=== PATIENT | female | born 1995 | race Caucasian/White ===

== ENCOUNTER → 2019-06-25 13:43 | Outpatient (BNVA) | payer SELFPAY | PROVIDERS: Family Provider Family Medicine; PCP Family Medicine; Visit Provider Family Medicine | DX: R05 Cough (principal) | CPT/HCPCS: 87804 ==

== ENCOUNTER → 2019-09-17 16:21 | Outpatient (BNVA) | payer OTHER, MEDICAID, SELFPAY | PROVIDERS: Family Provider Family Medicine; PCP Family Medicine; Visit Provider Nurse Practitioner Women's Health | DX: Z01.419 Encounter for gynecological examination (general) (routine) without abnormal findings (principal); N76.0 Acute vaginitis; N72 Inflammatory disease of cervix uteri | CPT/HCPCS: 88175 ==

== ENCOUNTER → 2021-08-23 08:20 | Outpatient (BNVA) | payer OTHER, BC, MEDICAID, SELFPAY | PROVIDERS: Family Provider Family Medicine; PCP Family Medicine; Visit Provider Obstetrics & Gynecology | DX: O20.9 Hemorrhage in early pregnancy, unspecified (principal) | CPT/HCPCS: 84702; 86850; 86900 ==

== ENCOUNTER 2021-12-07 17:33 | Outpatient (CLI) | payer OTHER, BC, MEDICAID, SELFPAY | END 2021-12-07 17:34 | disposition home or self-care (01) | PROVIDERS: PCP Family Medicine; Visit Provider Nurse Practitioner Women's Health | DX: N92.6 Irregular menstruation, unspecified (principal) | CPT/HCPCS: 84702 ==

== ENCOUNTER 2022-03-27 13:51 | Outpatient (CLI) | payer OTHER, BC, MEDICAID, SELFPAY | END 2022-03-27 13:52 | disposition home or self-care (01) | LOC: LAB 13:54 | PROVIDERS: Nurse Practitioner Women's Health; PCP Family Medicine; Visit Provider Family Medicine | DX: Z32.00 Encounter for pregnancy test, result unknown (principal) | CPT/HCPCS: 36415; 84702 ==

== ENCOUNTER 2022-04-12 13:58 | Outpatient (CLI) | payer OTHER, BC, MEDICAID, SELFPAY ==
[2022-04-12 14:46] LABS: Hematocrit 37.1 % (37.0-47.0); Hemoglobin 12.1 g/dL (11.5-15.3); Mean Corpuscular HGB Conc 32.6 g/dL (30.0-36.0); Mean Corpuscular Hemoglobin 29.2 pg (28.0-34.0); Mean Corpuscular Volume 89.4 fl (81-99); Platelet Count 332 10^3/cmm (130-400); Red Blood Count 4.15 10^6/uL (4.1-5.3); Red Cell Distribution Width 13.1 % (12.1-15.1); White Blood Count 13.6 10^3/uL (4.0-10.0)
== END 2022-04-12 13:59 | disposition home or self-care (01) ==
LOC: LAB 14:01
PROVIDERS: PCP Family Medicine; Visit Provider Nurse Practitioner Women's Health
DX: Z34.90 Encounter for supervision of normal pregnancy, unspecified, unspecified trimester (principal)
CPT/HCPCS: 80307; 81025; 84315; 85027; 86592; 86762; 86803; 86850; 86900; 87086; 87340; 87806

== ENCOUNTER 2022-04-19 15:18 | Outpatient (CLI) | payer OTHER, BC, MEDICAID, SELFPAY ==
--- NOTE | 2022-04-19 15:45 | USR_ITS ---
PROCEDURE INFORMATION: Exam: US , Transvaginal Exam date and time: 04/19/2022 3:42 PM Age: 26 years old Clinical indication: Lmp or gestational age (in weeks): 8w1d; Antepartum complications; Bleeding; ; Additional info: O20.9 - hemorrhage in early , unspecified, tvus LABS AND CLINICAL REPORTS: Last menstrual period start date: 02/21/2022 Gestational age (Established): 8 w 1 d Estimated due date (Established): 11/28/2022 TECHNIQUE: Imaging protocol: Real-time transvaginal obstetrical ultrasound of the maternal pelvis with image documentation. Transvaginal imaging was used for better evaluation of the fetus, adnexa, and/or cervix. COMPARISON: CT abdomen pelvis w con* [id number] 03/02/2016 10:50 AM FINDINGS: Gestation: Single live intrauterine gestation. Yolk sac measures 4.7 mm. heart rate: 147 bpm. BIOMETRY: Gestational age (AUA): 7 w 1 d Mean sac diameter: 2.3 cm. EGA (MSD) is 7 w 2 d Tenafly-Rump length (CRL): 9.2 mm. EGA (CRL) is 7 w 0 d MATERNAL: Right ovary/adnexa: Unremarkable. Left ovary/adnexa: Unremarkable. US/US OB transvaginal [id number] IMPRESSION: Single live intrauterine gestation with estimated age of 7 weeks 1 day.
== END 2022-04-19 15:19 | disposition home or self-care (01) ==
LOC: RAD 15:20
PROVIDERS: PCP Family Medicine; Visit Provider Nurse Practitioner Women's Health
DX: O20.9 Hemorrhage in early pregnancy, unspecified (principal); Z3A.01 Less than 8 weeks gestation of pregnancy
CPT/HCPCS: 76817

== ENCOUNTER → 2022-05-16 09:50 | Outpatient (BNVA) | payer OTHER, BC, MEDICAID, SELFPAY | PROVIDERS: PCP Family Medicine; Visit Provider Obstetrics & Gynecology | DX: Z34.90 Encounter for supervision of normal pregnancy, unspecified, unspecified trimester (principal) | CPT/HCPCS: 84315; 87086; 87491; 87591; 87661 ==

== ENCOUNTER → 2022-05-19 11:50 | Outpatient (BNVA) | payer OTHER, BC, MEDICAID, SELFPAY | PROVIDERS: PCP Family Medicine; Visit Provider Obstetrics & Gynecology | DX: Z34.90 Encounter for supervision of normal pregnancy, unspecified, unspecified trimester (principal) | CPT/HCPCS: 87086 ==

== ENCOUNTER → 2022-06-21 08:40 | Outpatient (BNVA) | payer OTHER, BC, MEDICAID, SELFPAY | PROVIDERS: PCP Family Medicine; Visit Provider Nurse Practitioner Women's Health | DX: Z34.90 Encounter for supervision of normal pregnancy, unspecified, unspecified trimester (principal) | CPT/HCPCS: 82105 ==

== ENCOUNTER → 2022-07-18 14:15 | Outpatient (BNVA) | payer OTHER, BC, MEDICAID, SELFPAY | PROVIDERS: PCP Family Medicine; Visit Provider Obstetrics & Gynecology | DX: O32.1XX0 Maternal care for breech presentation, not applicable or unspecified (principal); Z3A.20 20 weeks gestation of pregnancy | CPT/HCPCS: 76805 ==

== ENCOUNTER → 2022-08-22 08:16 | Outpatient (BNVA) | payer OTHER, BC, MEDICAID, SELFPAY | PROVIDERS: PCP Family Medicine; Visit Provider Nurse Practitioner Women's Health | DX: Z34.90 Encounter for supervision of normal pregnancy, unspecified, unspecified trimester (principal) | CPT/HCPCS: 82950; 84315; 85025 ==

== ENCOUNTER → 2022-08-25 08:12 | Outpatient (BNVA) | payer OTHER, BC, MEDICAID, SELFPAY | PROVIDERS: PCP Family Medicine; Visit Provider Obstetrics & Gynecology | DX: Z34.90 Encounter for supervision of normal pregnancy, unspecified, unspecified trimester (principal) | CPT/HCPCS: 82951; 82952 ==

== ENCOUNTER → 2022-09-05 14:21 | Outpatient (BNVA) | payer OTHER, BC, MEDICAID, SELFPAY | PROVIDERS: PCP Family Medicine; Visit Provider Obstetrics & Gynecology | DX: Z34.92 Encounter for supervision of normal pregnancy, unspecified, second trimester (principal); Z3A.27 27 weeks gestation of pregnancy | CPT/HCPCS: 76816 ==

== ENCOUNTER 2022-10-24 09:27 | Outpatient (CLI) | payer OTHER, BC, MEDICAID, SELFPAY ==
[2022-10-24 09:28] VITALS: BMI 36.6
[2022-10-24 09:40] VITALS: BP 123/73; PULSE 94
--- NOTE | 2022-10-24 09:53 | US_ITS ---
WS: [id number] ULTRASOUND OB LIMITED TECHNIQUE: Limited ultrasound examination of the fetus. CLINICAL INFORMATION: GESTIONAL DIABETIC COMPARISON: None. FINDINGS: Closed cervix measures 4.5 cm Single interuterine gestation. presentation is vertex Placental location is anterior. Placenta grade: 2 heart rate 144 BPM. Normal SILVIA 12.0 cm Biophysical profile 8 out of 8. breathin movement: 2 tone: 2 Amniotic fluid: 2 US/US OB BPP wo NST [id number] IMPRESSION: Normal biophysical profile 8 out of 8
[2022-10-24 10:00] VITALS: BP 128/63; PULSE 90
[2022-10-24 10:33] VITALS: BP 128/63; PULSE 90
== END 2022-10-24 10:30 | disposition home or self-care (01) ==
LOC: OPOB 09:28 → OBGYN 09:37
PROVIDERS: Absent Provider Obstetrics & Gynecology; PCP Family Medicine; Visit Provider Obstetrics & Gynecology
DX: O24.419 Gestational diabetes mellitus in pregnancy, unspecified control (principal); Z3A.00 Weeks of gestation of pregnancy not specified
CPT/HCPCS: 59025; 76819; 84315; 99211

== ENCOUNTER 2022-10-27 09:51 | Outpatient (CLI) | payer OTHER, BC, MEDICAID, SELFPAY ==
[2022-10-27 09:55] VITALS: BMI 37.5
== END 2022-10-27 10:45 | disposition home or self-care (01) ==
LOC: OPOB 09:56 → OBGYN 09:57
PROVIDERS: PCP Family Medicine; Visit Provider Obstetrics & Gynecology
DX: O24.419 Gestational diabetes mellitus in pregnancy, unspecified control (principal); Z3A.37 37 weeks gestation of pregnancy
CPT/HCPCS: 59025

== ENCOUNTER → 2022-10-31 10:11 | Outpatient (BNVA) | payer OTHER, BC, MEDICAID, SELFPAY | PROVIDERS: PCP Family Medicine; Visit Provider Obstetrics & Gynecology | DX: Z34.90 Encounter for supervision of normal pregnancy, unspecified, unspecified trimester (principal) | CPT/HCPCS: 76815; 76819 ==

== ENCOUNTER 2022-10-31 18:45 | Outpatient (CLI) | payer OTHER, BC, MEDICAID, SELFPAY ==
[2022-10-31 19:01] VITALS: BMI 36.8
[2022-10-31 19:05] VITALS: BP 131/71; PULSE 93; TEMP 36
[2022-10-31 19:24] VITALS: BP 135/63; PULSE 90
== END 2022-10-31 19:47 | disposition home or self-care (01) ==
LOC: OPOB 18:48 → OBGYN 18:48
PROVIDERS: PCP Family Medicine; Visit Provider Obstetrics & Gynecology
DX: O24.419 Gestational diabetes mellitus in pregnancy, unspecified control (principal); Z3A.35 35 weeks gestation of pregnancy
CPT/HCPCS: 59025; 84315; 99211

== ENCOUNTER 2022-11-03 15:32 | Outpatient (CLI) | payer OTHER, BC, MEDICAID, SELFPAY ==
[2022-11-03 15:32] VITALS: RESP 18
[2022-11-03 15:42] VITALS: BP 125/64; PULSE 108
[2022-11-03 15:44] VITALS: BMI 37.5
[2022-11-03 15:57] VITALS: BP 126/60; PULSE 94
[2022-11-03 16:00] VITALS: BP 124/64; PULSE 97; TEMP 36.1
[2022-11-03 16:11] VITALS: BP 124/64; PULSE 97; TEMP 36.1
== END 2022-11-03 16:12 | disposition home or self-care (01) ==
LOC: OPOB 15:33 → OBGYN 15:34
PROVIDERS: PCP Family Medicine; Visit Provider Obstetrics & Gynecology
DX: O24.419 Gestational diabetes mellitus in pregnancy, unspecified control (principal); Z3A.00 Weeks of gestation of pregnancy not specified
CPT/HCPCS: 59025

== ENCOUNTER 2022-11-07 08:53 | Outpatient (CLI) | payer OTHER, BC, MEDICAID, SELFPAY ==
[2022-11-07 09:11] VITALS: BP 128/68; PULSE 80
[2022-11-07 09:15] VITALS: BMI 36.8
[2022-11-07 09:29] VITALS: BP 128/74; PULSE 90
[2022-11-07 09:35] VITALS: BP 128/74; PULSE 90; RESP 16
== END 2022-11-07 09:35 | disposition home or self-care (01) ==
LOC: OPOB 08:57 → OBGYN 08:57
PROVIDERS: PCP Family Medicine; Visit Provider Obstetrics & Gynecology
DX: O24.419 Gestational diabetes mellitus in pregnancy, unspecified control (principal); Z3A.00 Weeks of gestation of pregnancy not specified
CPT/HCPCS: 59025; 99211

== ENCOUNTER 2022-11-10 12:55 | Outpatient (CLI) | payer OTHER, BC, MEDICAID, SELFPAY ==
--- NOTE | 2022-11-10 13:30 | US_ITS ---
WS: [id number] OB ultrasound for biophysical profile, 11/10/2022 Clinical Data: O24.419 - Gestational diabetes mellitus in , uns... Comparison: OB ultrasound, 10/31/2022 Findings: There is a single intrauterine in the vertex presentation. The heart rate is 136 beat s per minute. The placenta is anterior.. The biophysical profile is 8 of 8 with normal scores for breathing, movement, posture and tone and amniotic fluid volume. US/US OB F/U w BPP wo NST Impression: 1. Single intrauterine in vertex presentation. 2. Biophysical profile 8 of 8. 3. heart rate 136 beats per minute.
== END 2022-11-10 12:56 | disposition home or self-care (01) ==
LOC: RAD 12:58
PROVIDERS: PCP Family Medicine; Visit Provider Obstetrics & Gynecology
DX: O24.419 Gestational diabetes mellitus in pregnancy, unspecified control (principal); Z3A.00 Weeks of gestation of pregnancy not specified
CPT/HCPCS: 76816; 76819

== ENCOUNTER 2022-11-10 18:30 | Outpatient (CLI) | payer OTHER, BC, MEDICAID, SELFPAY ==
[2022-11-10 18:30] VITALS: BMI 38.0
[2022-11-10 18:40] VITALS: BP 123/62; PULSE 100
[2022-11-10 18:55] VITALS: BP 124/69; PULSE 97
[2022-11-10 19:11] VITALS: BP 133/71; PULSE 93
[2022-11-10 19:25] VITALS: BP 134/71; PULSE 94
== END 2022-11-10 19:27 | disposition home or self-care (01) ==
LOC: OPOB 18:35 → OBGYN 18:37
PROVIDERS: PCP Family Medicine; Visit Provider Obstetrics & Gynecology
DX: Z36.9 Encounter for antenatal screening, unspecified (principal)
CPT/HCPCS: 59025

== ENCOUNTER → 2022-11-14 09:17 | Outpatient (BNVA) | payer OTHER, BC, MEDICAID, SELFPAY | PROVIDERS: PCP Family Medicine; Visit Provider Obstetrics & Gynecology | DX: Z34.90 Encounter for supervision of normal pregnancy, unspecified, unspecified trimester (principal) | CPT/HCPCS: 76819 ==

== ENCOUNTER 2022-11-14 18:03 | Outpatient (CLI) | payer OTHER, BC, MEDICAID, SELFPAY ==
[2022-11-14 18:15] VITALS: BP 129/60; PULSE 89
[2022-11-14 18:31] VITALS: BP 131/75; PULSE 95
[2022-11-14 18:41] VITALS: BMI 37.3
== END 2022-11-14 18:40 | disposition home or self-care (01) ==
LOC: OPOB 18:04 → OBGYN 18:05
PROVIDERS: PCP Family Medicine; Visit Provider Obstetrics & Gynecology
DX: O24.419 Gestational diabetes mellitus in pregnancy, unspecified control (principal); Z3A.00 Weeks of gestation of pregnancy not specified
CPT/HCPCS: 59025; 84315; 87081

== ENCOUNTER 2022-11-17 14:44 | Outpatient (CLI) | payer OTHER, BC, MEDICAID, SELFPAY ==
[2022-11-17 14:44] VITALS: BMI 38.2
== END 2022-11-17 16:00 | disposition home or self-care (01) ==
LOC: OPOB 14:47 → OBGYN 14:52
PROVIDERS: PCP Family Medicine; Visit Provider Obstetrics & Gynecology
DX: O24.419 Gestational diabetes mellitus in pregnancy, unspecified control (principal); Z3A.00 Weeks of gestation of pregnancy not specified
CPT/HCPCS: 59025

== ENCOUNTER → 2022-11-21 10:15 | Outpatient (BNVA) | payer OTHER, BC, MEDICAID, SELFPAY | PROVIDERS: PCP Family Medicine; Visit Provider Obstetrics & Gynecology | DX: Z34.90 Encounter for supervision of normal pregnancy, unspecified, unspecified trimester (principal) | CPT/HCPCS: 76819 ==

== ENCOUNTER 2022-11-21 18:45 | Outpatient (CLI) | payer OTHER, BC, MEDICAID, SELFPAY ==
[2022-11-21 18:45] VITALS: BMI 37.7
[2022-11-21 19:01] VITALS: BP 139/71; PULSE 91
[2022-11-21 19:15] VITALS: BP 138/65; PULSE 98
== END 2022-11-21 19:20 | disposition home or self-care (01) ==
LOC: OPOB 18:49 → OBGYN 18:50
PROVIDERS: PCP Family Medicine; Visit Provider Obstetrics & Gynecology
DX: Z36.9 Encounter for antenatal screening, unspecified (principal)
CPT/HCPCS: 59025; 84315; 99211

== ENCOUNTER 2022-11-24 18:15 | Outpatient (CLI) | payer OTHER, BC, MEDICAID, SELFPAY ==
[2022-11-24 18:15] VITALS: BMI 38.7
[2022-11-24 18:24] VITALS: BP 137/81; PULSE 102
[2022-11-24 18:34] VITALS: BP 137/85; PULSE 91
[2022-11-24 18:44] VITALS: BP 133/71; PULSE 91
[2022-11-24 18:54] VITALS: BP 121/70; PULSE 83
[2022-11-24 19:00] VITALS: BP 121/70; PULSE 83; RESP 16; TEMP 36.7
== END 2022-11-24 19:00 | disposition home or self-care (01) ==
LOC: OPOB 18:16 → OBGYN 18:17
PROVIDERS: PCP Family Medicine; Visit Provider Obstetrics & Gynecology
DX: O24.419 Gestational diabetes mellitus in pregnancy, unspecified control (principal); Z3A.00 Weeks of gestation of pregnancy not specified
CPT/HCPCS: 59025

== ENCOUNTER → 2022-11-28 13:19 | Outpatient (BNVA) | payer OTHER, BC, MEDICAID, SELFPAY | PROVIDERS: PCP Family Medicine; Visit Provider Obstetrics & Gynecology | DX: O41.03X0 Oligohydramnios, third trimester, not applicable or unspecified (principal); Z3A.37 37 weeks gestation of pregnancy | CPT/HCPCS: 76816; 76819 ==

== ENCOUNTER 2022-11-28 18:33 | Outpatient (CLI) | payer OTHER, BC, MEDICAID, SELFPAY ==
[2022-11-28] VITALS (9 sets, daily range): BP systolic 126–143; BP diastolic 58–72; PULSE 92–101; TEMP 36.2; O2SAT 96–99; BMI 38.4
== END 2022-11-28 19:19 | disposition home or self-care (01) ==
LOC: OPOB 18:39 → OBGYN 18:41
PROVIDERS: Absent Provider Obstetrics & Gynecology; PCP Family Medicine; Visit Provider Obstetrics & Gynecology
DX: O24.419 Gestational diabetes mellitus in pregnancy, unspecified control (principal); Z3A.00 Weeks of gestation of pregnancy not specified
CPT/HCPCS: 59025; 84315

== ENCOUNTER 2022-12-01 15:21 | Outpatient (CLI) | payer OTHER, BC, MEDICAID, SELFPAY ==
[2022-12-01 15:46] VITALS: BP 125/72; PULSE 92
[2022-12-01 15:56] VITALS: BP 137/76; PULSE 88
[2022-12-01 16:11] VITALS: BMI 38.2
== END 2022-12-01 16:16 | disposition home or self-care (01) ==
LOC: OPOB 15:21 → OBGYN 15:22
PROVIDERS: PCP Family Medicine; Visit Provider Obstetrics & Gynecology
DX: O24.419 Gestational diabetes mellitus in pregnancy, unspecified control (principal); Z3A.00 Weeks of gestation of pregnancy not specified
CPT/HCPCS: 59025; 99211

== ENCOUNTER 2022-12-05 13:00 | Inpatient (IN) | payer OTHER, BC, MEDICAID, SELFPAY ==
[2022-12-05] VITALS (34 sets, daily range): BP systolic 101–159; BP diastolic 55–85; PULSE 60–98; RESP 16; TEMP 35.8–37; BMI 38.0
[2022-12-05 09:58] LABS: Basophils % 0.1 %; Eosinophils % 0.4 %; Hematocrit 37.5 % (37.0-47.0); Hemoglobin 12.5 g/dL (11.5-15.3); Lymphocytes # 1.2 10^3/uL (0.8-4.8); Lymphocytes % 11.8 %; Mean Corpuscular HGB Conc 33.3 g/dL (30.0-36.0); Mean Corpuscular Hemoglobin 30.4 pg (28.0-34.0); Mean Corpuscular Volume 91.2 fl (81-99); Mean Platelet Volume 10.9 fL (7.4-10.4); Monocytes # 0.7 10^3/uL (0.2-0.9); Monocytes % 6.7 %; Neutrophils # 8.29 10^3/uL (1.8-7.7); Neutrophils % 80.4 %; Nucleated Red Blood Cells % 0 %; Platelet Count 222 10^3/cmm (130-400); Red Blood Count 4.11 10^6/uL (4.1-5.3); Red Cell Distribution Width 13.3 % (12.1-15.1); White Blood Count 10.3 10^3/uL (4.0-10.0)
[2022-12-05] MEDS: miSOPROStol 100 mcg tablet 25 MCG VAGINAL ×2 (10:02→14:48)
[2022-12-05 11:12] LABS: Glucose Point of Care 77 mg/dL (70-110)
[2022-12-05] MEDS: dextrose 5%-lactated ringers 1,000 ML 125 ML IV ×2 (14:15→20:16)
--- NOTE | 2022-12-05 16:05 | PM.OPHPUD ---
Labor & Delivery H&P Update Date of Procedure: December 06, 2022 Date H&P Performed: 11/28/22 H&P update information: I have reviewed H&P completed within last 30 days, I have examined patient prior to procedure and No changes to prior documentation Admission Diagnosis:
[2022-12-05 17:04] LABS: Glucose Point of Care 85 mg/dL (70-110)
[2022-12-05] MEDS: acetaminophen 325 mg Tablet 650 MG PO (20:16)
[2022-12-05] MEDS: calcium carbonate 500 mg Chew Tablet 1000 MG PO (20:16)
[2022-12-05] MEDS: fentaNYL 50 mcg/mL INJ 2mL IVP ×2 (22:04→23:50)
[2022-12-05] MEDS: lactated ringers 1,000 ML 999 ML IV (22:39)
[2022-12-06] VITALS (95 sets, daily range): BP systolic 98–137; BP diastolic 50–91; PULSE 47–96; RESP 16–18; TEMP 35.4–37.1; O2SAT 97–99
[2022-12-06] MEDS: fentaNYL 50 mcg/mL INJ 2mL IVP ×4 (01:20→10:39)
[2022-12-06] MEDS: hyDROXYzine 25 mg Capsule 50 MG PO (04:15)
[2022-12-06 05:18] LABS: Glucose Point of Care 91 mg/dL (70-110)
[2022-12-06 09:29] LABS: Glucose Point of Care 125 mg/dL (70-110)
[2022-12-06] MEDS: lactated ringers 1,000 ML 125 ML IV (09:31)
[2022-12-06] MEDS: lactated ringers 1,000 ML 999 ML IV ×2 (11:45→17:37)
--- NOTE | 2022-12-06 12:02 | P.ANESUD_ITS ---
Pre-Anesthetic Update Pre-Anesthetic Assessment: Date of Surgery/Procedure: 12/06/22 Proposed Procedure: Any changes to Pre-Anesthetic Assessment?: No Labs Last 48hrs: Short CBC 12/05/22 Range/Units 09:38 WBC 10.3 H (4.0-10.0) 10^3/ uL Hgb 12.5 (11.5-15.3) g/dL Hct 37.5 (37.0-47.0) % MCV 91.2 (81-99) fl Plt Count 222 (130-400) 10^3/c mm Neut % (Auto) 80.4 % Neut # (Auto) 8.29 H (1.8-7.7) 10^3/u L Vitals: Temperature 96.8 F L 12/06/22 08:38 Temperature Source Oral 12/05/22 09:46 Pulse Rate 88 12/06/22 11:58 Pulse Rhythm Regular 12/05/22 09:00 Pulse Strength 3+ Normal 12/05/22 20:00 Respiratory Rate 18 12/06/22 10:39 Respiratory Effort Non-Labored 12/06/22 10:39 Respiratory Depth Normal 12/06/22 10:39 Respiratory Patter n Normal 12/06/22 10:39 Blood Pressure 118/65 12/06/22 11:58 Pulse Oximetry 97 12/06/22 11:56 Oxygen Delivery Me thod Room Air 12/06/22 05:33 Exam: Pre-Anes Outpt Exam: alert, oriented x 3, clear to auscultation bilaterally and regular rate & rhythm Cardiac Studies: No Data to Display Anesthesia Procedures Epidural: Time Out Performed: Yes Consents Signed: Procedure Consent Consent: requested by attending/covering physician, from patient, risks and benefits reviewed and patient agrees to proceed Lumbar Level: L3-L4 Epidural position: sitting Epidural procedure: sterile prep of area, 1% l idocaine to numb the area, 18 g needle, neg for paresthesia, test dose given, 1.5% xylocaine 1:200k epi, 0.2% Ropivacaine bolus ml (5mls), placed PCEA, no systemic response, sterile dressing applied and 0.2% Ropiavacaine @ mls/hr (10) Additional Comments: Several attempts made at L3-4 prior to success (one attempt below that level), WENDY at 6cm, cath at 11cm
[2022-12-06 13:52] LABS: Glucose Point of Care 73 mg/dL (70-110)
[2022-12-06] MEDS: dextrose 5%-lactated ringers 1,000 ML 125 ML IV (16:03)
[2022-12-06 18:21] LABS: Glucose Point of Care 81 mg/dL (70-110)
[2022-12-06 22:13] LABS: Glucose Point of Care 75 mg/dL (70-110)
[2022-12-07] VITALS (125 sets, daily range): BP systolic 94–157; BP diastolic 50–87; PULSE 54–121; RESP 16–18; TEMP 36.4–37.6; O2SAT 88–100
[2022-12-07 02:46] LABS: Glucose Point of Care 82 mg/dL (70-110)
--- NOTE | 2022-12-07 05:35 | ANES.PROC ---
Anesthesia Procedures Procedure/Date: 12/07/22 Other Information: Called for pt discomfort. Reports feeling pressure and back pain. Rate on pump at 10cc/hour and has been using boluses. Lido 1% and Fentanyl 100mcg given per epidural. Rate on epid pump increased to 13cc hour. Pt expresses relief.
[2022-12-07 06:50] LABS: Glucose Point of Care 95 mg/dL (70-110)
[2022-12-07 11:03] LABS: Glucose Point of Care 103 mg/dL (70-110)
[2022-12-07] MEDS: dextrose 5%-lactated ringers 1,000 ML 125 ML IV (11:59)
[2022-12-07] MEDS: terbutaline 1 mg/mL INJ 0.25 MG SUBCUT (12:44)
[2022-12-07] MEDS: lactated ringers 1,000 ML 999 ML IV ×2 (13:20→16:40)
--- NOTE | 2022-12-07 14:22 | US_ITS ---
WS: [id number] URINARY BLADDER ULTRASOUND HISTORY: No urine output with indwelling catheter COMPARISON: None available. Vila catheter balloon is noted in the pelvis. There is no surrounding fluid. No bladder wall is iden tified. Typically a small amount of urine is noted adjacent to the Vila catheter to suggest appropri ate position. Bilateral mild hydronephrosis. Slightly greater dilatation of the RIGHT renal pelvis. US/US renal BI* [id number] IMPRESSION: 1. Bilateral mild hydronephrosis. 2. Vila catheter is present in the pelvis. No urine is identified adjacent to this catheter.
--- NOTE | 2022-12-07 15:22 | PM.MISC ---
Miscellaneous Note Purpose of Documentation: Epidural Bolus Note: Patient uncomfortable, bolused 2mls (100mcg) fent and 10mls of 3% Nesacaine. Pt. more comfortable
[2022-12-07] MEDS: ROPivacaine premix 200 MG/100 ML PREMIX 13 MG EPIDURAL (15:50)
--- NOTE | 2022-12-07 16:28 | P.PN_ITS ---
Subjective Subjective: Mrs. Brenton Woodward at 40+2 weeks with gestational diabetes admitted for induction. Feeling some contractions. Vitals/I&O/Wt Last Vital Signs Temp 99.7 F H 12/07/22 11:34 Pulse 90 12/07/22 16:23 Resp 18 12/07/22 06:00 BP 127/69 12/07/22 16:23 Pulse Ox 100 12/07/22 13:20 O2 Del Method Room Air 12/07/22 02:00 12/07/22 12/07/22 12/07/22 06:59 14:59 22:59 Intake Total 153 / 5056.433 1285.883 / 1285.883 20 / 1305.883 Output Total 200 / 750 50 / 50 Balance -47 / 4306.433 1235.883 / 1235.883 20 / 1255.883 Physical Exam Narrative: GA: Alert and oriented ?3. Lungs: Clear to auscultation bilaterally. Heart: Regular rhythm and rate. Abdomen: Gravid, full the height equals dates, nontender. PUMP AND STILL OPERATOR: SVE; dilation: 7 cm, effacement: 90%, station: -3, presentation: VX, membranes: AROM. Extremities: no edema, no cyanosis, no calves pain. heart tracing: Basal rate: 140's bpm, Variability: moderate, Accelerations: present, Decelerations: absent, Contraction: irregular. Urinary Catheter Management: Vila: Cath Placed During This Visit: yes Reason for Continuing Indwelling Catheter: Required Immobilization for Trauma or Surgery or Anesthesia Urinary Catheter Date of Insertion: 12/06/22 Urinary Catheter Time of Insertion: 12:45 Data 12/05/22 09:38 A&P Assessment and plan (1) Gestational diabetes: Mrs. Brenton Woodward at 40+2 weeks with gestational diabetes admitted for induction. Induction was started with misoprostol for cervical ripening. Undetermined heart tracing occasionally with decelerations. After prolonged observation and heart tracing returning to category 1 dosing oxytocin was started for labor augmentation. She progressed with dilation of 7 cm when she had a spontaneous rupture of membrane. Epidural not working well and she is feeling some contractions. She has maintain the same cervical dilation over 4 hours. The patient and her were counseled regarding failure to progress and the recommendation for primary low-transverse delivery. She was counseled regarding all risk and possible complication for the delivery. They agree to the delivery and all questions were answered. She signed the consent for primary low-transverse delivery due to failure to progress. Plan Primary low transverse delivery Attestations Medical Necessity Statement*: In my professional opinion poor admitting diagnosis Coding Level of Care Code Acute Code for Chg Fwd Diagnoses Gestational diabetes O24.419
[2022-12-07] MEDS: famotidine 20 mg/2 mL INJ IVP (16:29)
[2022-12-07] MEDS: metoclopramide 5 mg/mL SDV 2 mL 10 MG IV (16:29)
[2022-12-07] MEDS: ceFAZolin 2,000 MG in sodium chloride 0.9% (plus) 50 ML 100 MG IV (16:30)
[2022-12-07] MEDS: citric acid-sodium citrate 30 mL UDC PO (16:30)
--- NOTE | 2022-12-07 18:14 | P.OP_ITS ---
Operative Report Date of procedure: December 07, 2022 Pre-op diagnosis: Term . Gestational diabetes Failure to progress. Post-op diagnosis: Same Post-op findings: Male APGARS 8/9 Procedure done: Primary low traverse delivery Surgeon: Heraclio Gee MD Estimated blood loss (mL): 500 IV fluids (mL): 1,000 Urine output (mL): 100 Complications: None Procedure: After assuring informed consent, the patient was taken to the operating room and anesthesia was initiated. She was placed in the dorsal supine position with a left lateral tilt. The abdomen was prepped and draped in the usual sterile manner. A time-out procedure was performed. Preop antibiotics was administered. A Pfannenstiel skin incision was made with the scalpel and carried through to the underlying layer of fascia with the Bovie. The fascia was nicked in the midline and the incision extended laterally with the Machuca scissors. The superior aspect of the fascial incision was then grasped with Eunice clamps and elevated and the underlying rectus muscle dissected off bluntly and sharp with machuca scissors. Attention was then turned to the inferior aspect of the incision which, in similar fashion, was grasped and tented up with Eunice clamps and the rectus muscle dissected bluntly. The rectus muscles were then in the midline and the peritoneum identified, tented up and entered sharply with Metzenbaum scissors. The peritoneal incision was then extended superiorly and inferiorly with good visualization of the bladder. The James O retractor was then inserted and the vesicouterine peritoneum identified, grasped with pickups and entered sharply with Metzenbaum scissors. This incision was then extended laterally and the bladder flap created digitally. The uterus incised in a low transverse fashion with the scalpel. The uterine incision was then extended with the bandage scissors. The was then delivered in the cephalic presentation atraumatically. The nose and the mouth were suctioned with bulb and the cord clamped and cut. The cord was normal and had three vessels. Amniotic fluid was clear. The placenta was then removed manually and the uterus exteriorized and cleared of all clots and debris. The uterine incision was repaired with 0 Vicryl in a running-locked fashion. A second layer of the same suture was used to obtain excellent hemostasis. The gutters were cleared of all clots. The uterus was then returned to the abdomen. The rectus muscles were approximated with 3-0 chromic gut. The subcutaneous adipose tissue was infiltrated with Exparel for pain management. The fascia was reapproximated with 0 Vicryl in an mid locking running fashion. The skin was cl osed with Insorb?s subcuticular absorbable ayla and Dermabond. The patient tolerated the procedure well. The sponge, lap and needle counts were correct times three.
--- NOTE | 2022-12-07 18:44 | ANE.PACU2 ---
Inpatient post-anesthesia follow up: Airway intact: Yes Vital signs: Temperature 99.7 F Pulse Rate 96 Respiratory Rate 18 Blood Pressure 153/85 Pulse Oximetry 100 Oxygen Delivery Me thod Room Air Oxygen Flow Rate Fraction of Inspir ed Oxygen Hydration adequate: Yes Nausea and vomiting: No Pain level: 3 Mental status: Baseline Additional Comments: Epidural pulled at end of case. Tip intact and insertion site covered with bandaid.
[2022-12-08 00:05] VITALS: BP 124/74; PULSE 57
[2022-12-08 02:19] VITALS: PULSE 61; O2SAT 95
[2022-12-08 02:22] VITALS: BP 132/59; PULSE 54
[2022-12-08 06:27] LABS: Hematocrit 30.3 % (37.0-47.0); Hemoglobin 9.8 g/dL (11.5-15.3); Mean Corpuscular HGB Conc 32.3 g/dL (30.0-36.0); Mean Corpuscular Hemoglobin 29.8 pg (28.0-34.0); Mean Corpuscular Volume 92.1 fl (81-99); Mean Platelet Volume 10.6 fL (7.4-10.4); Platelet Count 185 10^3/cmm (130-400); Red Blood Count 3.29 10^6/uL (4.1-5.3); Red Cell Distribution Width 13.6 % (12.1-15.1)
[2022-12-08 06:40] LABS: Glucose Point of Care 88 mg/dL (70-110)
--- NOTE | 2022-12-08 07:55 | PM.PN ---
Subjective Subjective: Mrs. Farris 27-year-old female is status post primary low transverse delivery day 1. Refers pain under control. Tolerating diet well. Vitals/I&O/Wt Last Vital Signs Temp 98.9 F 12/07/22 23:15 Pulse 73 12/09/22 04:38 Resp 15 12/09/22 00:14 BP 121/71 12/09/22 04:38 Pulse Ox 100 12/09/22 00:11 O2 Del Method Room Air 12/09/22 00:14 Physical Exam Narrative: GA; alert and oriented x 3 HEENT: normal Breasts: engorged Nipples - skin intact Lungs; clear to auscultation Heart: regular rhythm, no murmurs. Abd: Appropriately tender. BS+. Uterine fundus below umbilicus. No Fundal Tenderness. Incision minimal tenderness, incision clean and dry, no redness, pain or edema. Perineum: normal lochia. Extremities: 2+ edema, no cyanosis, no tenderness. Urinary Catheter Management: Vila: Cath Placed During This Visit: yes, but has since been removed by the nurse Reason for Continuing Indwelling Catheter: Required Immobilization for Trauma or Surgery or Anesthesia Urinary Catheter Date of Insertion: 12/06/22 Urinary Catheter Time of Insertion: 12:45 Date Urinary Catheter Removed: 12/07/22 Time Urinary Catheter Discontinued: 12:55 Latex Free: Cath Placed During This Visit: yes, but has since been removed by the nurse Reason for Continuing Indwelling Catheter: Decision to DC Catheter Date Urinary Catheter Removed: 12/08/22 Time Urinary Catheter Discontinued: 11:00 Data 12/08/22 06:18 A&P Assessment and plan (1) Status post delivery: Mrs. Farris 27-year-old female is status post primary low transverse delivery day 1. Refers pain under control. Tolerating diet well. He is afebrile hemodynamically stable postoperative day 1. Ambulating without difficulty. Plan Continue postop observation Attestations Medical Necessity Statement*: In my professional opinion poor admitting diagnosis. Coding Level of Care Code Acute Code for Chg Fwd Diagnoses Status post delivery Z98.891
[2022-12-08] MEDS: docusate sodium 100 mg Capsule PO ×2 (08:46→21:25)
[2022-12-08] MEDS: ibuprofen 800 mg tablet PO ×3 (08:46→21:24)
[2022-12-08] MEDS: prenatal vitamin Capsule 1 CAP PO (08:47)
[2022-12-08 08:51] VITALS: BP 122/58; PULSE 74
[2022-12-08 12:22] VITALS: BP 135/71; PULSE 78; O2SAT 97
[2022-12-08 16:28] VITALS: BP 113/61; PULSE 70
[2022-12-09] MEDS: acetaminophen 325 mg Tablet 650 MG PO ×2 (00:10→07:23)
[2022-12-09 00:11] VITALS: BP 130/80; PULSE 89; O2SAT 100
[2022-12-09 00:14] VITALS: RESP 15
[2022-12-09 04:38] VITALS: BP 121/71; PULSE 73
[2022-12-09] MEDS: lanolin oint 7 gm 1 APPLIC TOPICAL (07:23)
--- NOTE | 2022-12-09 08:06 | PM.OBGYDC ---
Discharge Providers GAME ENGINEER Date of Admission: 12/05/22 13:00 Date of Discharge: 12/09/22 Attending Provider at Admission: Heraclio Gee MD Attending Provider at Discharge: Heraclio Gee MD Primary Care Provider: Bret Almeida MD Diagnoses at Discharge Discharge Diagnosis (1) Status post delivery: Status: Acute Reason for Visit Reason for Visit: Gestational Diabetes Hospital Course Hospital Course Mrs. Farris 27-year-old female complicated by gestational diabetes well controlled. Admitted admitted for induction, misoprostol was given for cervical ripening, and oxytocin for labor augmentation, but she dilated to 7 cm without further progression and a primary low-transverse delivery was performed due to failure to progress. Postop observation was uneventful. She is afebrile and hemodynamically stable. Tolerating diet well. Ambulating with without difficulty. Pain under control. She was counseled regarding pelvic rest for 6 weeks (no sex, no tampons, no vaginal douches). Return to the emergency room if any fever, increased bleeding or pain. Information Peripartum Data: Infant Delivery Method: Physical Exam Narrative: GA; alert and oriented x 3 HEENT: normal Breasts: engorged Nipples - skin intact Lungs; clear to auscultation Heart: regular rhythm, no murmurs. Abd: Appropriately tender. BS+. Uterine fundus below umbilicus. No Fundal Tenderness. Incision minimal tenderness, incision clean and dry, no redness, pain or edema. Perineum: normal lochia. Extremities: 2+ edema, no cyanosis, no tenderness. Urinary Catheter Management: Vila: Cath Placed During This Visit: yes, but has since been removed by the nurse Reason for Continuing Indwelling Catheter: Required Immobilization for Trauma or Surgery or Anesthesia Urinary Catheter Date of Insertion: 12/06/22 Urinary Catheter Time of Insertion: 12:45 Date Urinary Catheter Removed: 12/07/22 Time Urinary Catheter Discontinued: 12:55 Latex Free: Cath Placed During This Visit: yes, but has since been removed by the nurse Reason for Continuing Indwelling Catheter: Decision to DC Catheter Date Urinary Catheter Removed: 12/08/22 Time Urinary Catheter Discontinued: 11:00 History History History 1 Term 0 0 Miscarriages/Ectopic 0 Living Children 0 Discharge Data Studies Completed and Pending Completed Studies During Hospitalization Category Date Time Status US renal BI* [id number] Stat Ultrasound 12/07/22 14:22 Completed Radiology Impressions Renal Ultrasound 12/07/22 14:22 IMPRESSION: 1. Bilateral mild hydronephrosis. 2. Vila catheter is present in the pelvis. No urine is identified adjacent to this catheter. Laboratory Results WBC 17.0 10^3/uL (4.0-10.0) H 12/08/22 06:18 RBC 3.29 10^6/uL (4.1-5.3) L 12/08/22 06:18 Hgb 9.8 g/dL (11.5-15.3) L 12/08/22 06:18 Hct 30.3 % (37.0-47.0) L 12/08/22 06:18 MCV 92.1 fl (81-99) 12/08/22 06:18 MCH 29.8 pg (28.0-34.0) 12/08/22 06:18 MCHC 32.3 g/dL (30.0-36.0) 12/08/22 06:18 RDW 13.6 % (12.1-15.1) 12/08/22 06:18 Plt Count 185 10^3/cmm (130-400) 12/08/22 06:18 MPV 10.6 fL (7.4-10.4) H 12/08/22 06:18 Neut % (Auto) 80.4 % 12/05/22 09:38 Lymph % (Auto) 11.8 % 12/05/22 09:38 Weld % (Auto) 6.7 % 12/05/22 09:38 Eos % (Auto) 0.4 % 12/05/22 09:38 Baso % (Auto) 0.1 % 12/05/22 09:38 Neut # (Auto) 8.29 10^3/uL (1.8-7.7) H 12/05/22 09:38 Lymph # (Auto) 1.2 10^3/uL (0.8-4.8) 12/05/22 09:38 Weld # (Auto) 0.7 10^3/uL (0.2-0.9) 12/05/22 09:38 Eos # (Auto) 0.0 10^3/uL (0.0-0.8) 12/05/22 09:38 Baso # (Auto) 0.0 10^3/uL (0.0-0.1) 12/05/22 09:38 Nucleated RBC % (auto) 0 % 12/05/22 09:38 Nucleated RBCs # 0.0 /100WBC 12/05/22 09:38 POC Glucose 88 mg/dL (70-110) 12/08/22 06:37 Vitals Last Vital Signs Temp 98.9 F 12/07/22 23:15 Pulse 73 12/09/22 04:38 Resp 15 12/09/22 00:14 BP 121/71 12/09/22 04:38 Pulse Ox 100 12/09/22 00:11 O2 Del Method Room Air 12/09/22 00:14 Discharge Plan Discharge Patient Disposition: Home Condition: Stable Prescriptions: New hydrocodone-acetaminophen 5-325 mg tablet 1 tab PO Q4H PRN (Reason: pain) Qty: 20 0RF ferrous sulfate [Iron (ferrous sulfate)] 325 mg (65 mg iron) tablet 325 mg PO BID Qty: 60 0RF acetaminophen 325 mg capsule 325 mg PO Q4H PRN (Reason: fever or postoperative pain) Qty: 60 0RF docusate sodium [Colace] 100 mg capsule 100 mg PO BID Qty: 60 0RF ibuprofen 800 mg tablet 800 mg PO TID PRN (Reason: pain) Qty: 60 0RF Continued prenat.vits,rona,byn-hrvz-qavha Tablet 1 tab PO DAILY buspirone 5 mg tablet See Rx Instructions .ROUTE .COMPLEX Qty: 60 3RF Dose Instruction: TAKE 1 TABLET BY MOUTH TWICE DAILY Rx Instructions: TAKE 1 TABLET BY MOUTH TWICE DAILY metformin 500 mg tablet See Rx Instructions .ROUTE .COMPLEX Qty: 60 0RF Dose Instruction: TAKE 1 TABLET BY MOUTH TWICE DAILY Rx Instructions: TAKE 1 TABLET BY MOUTH TWICE DAILY Discharge Orders: Discharge Order (Routine); Ordered 12/09/22 Ordered By: Heraclio Gee Referrals: Heraclio Gee MD [Physician] - 2 weeks Discharge Diet: Usual diet Discharge Activity: Limit activity as instructed Patient Instructions: Opioid Safety, Caring for Your Baby (GEN), (GEN), Choosing Between Vaginal After () or Repeat... (GEN), Your 's Appearance (GEN), TTN (Transient Tachypnea of ) (IP) Activity Restrictions/Additional Instructions: 1. Please call [facility] on next working day to make your post-operative appointment in 2 weeks. 2. Please stay home until you come back to the clinic on first post-hospatilization check up. 3. Please follow instructions on your medications CAREFULLY. 4. If you have abdominal incision, do not cover it unless dressing is necessary because of drainage. OK to shower, but avoid bath. Leave steri-strips until they fall off. If they are still on one week after surgery, you may remove them. 5. If you had vaginal surgery or vaginal repair, Dr. Gee may instruct you to take SITZ bath. 6. Yellow, blood tinged odorous vaginal discharge is usually normal after hysterectomy or vaginal surgeries. 7. No SEXUAL INTERCOURSE, tampons, or douches until you are completely released from the post-operative care. 8. Avoid constipation by eating right and maybe using some Metamucil or Milk of Magnesia. 9. All prescription refills are given during the working hours. Please do no wait till it runs out. Call the clinic at [phone] before your medication runs out. The clinic will get in touch with your doctor to prescribe medications if necessary. 10. Please remain within 40 mile radius from our hospital because emergencies do happen now and then during the post-operative period. 11. If you have stairs at home, take one step at a time slowly and minimize the number of trips. It helps to stay in one floor for the next few days. No lifting except what you can lift by one hand until you are released from the post-operative care. 12. Driving is discouraged until you are well healed. It may be 3-4 weeks before you feel strong enough to drive. You should be able to turn and look through the rear window without pain and you should be able to push the brake pedal very hard without pain before you drive. No fast rules, but SAFETY should be your primary concern. DO NOT drive if you are on sedating medications such as narcotics. 13. Call the clinic (during working hours) to make urgent appointment or go to the Emergency room, if any of the following occurs: i. Vaginal bleeding becomes heavy, more than a period. ii. Incision becomes red and sore, or drains pus. iii. Your TEMPERATURE is over 100.4F or you have chill. iv. IV site becomes red and swollen (a little ``knot?? is usually OK) v. Persistent nausea and vomiting vi. Persistent constipation or diarrhea vii. Rash or allergic reaction to medications. Discharge Attestations GAME ENGINEER Time Spent in Discharge Care*: greater than 30 min Coding Level of Care Code Acute Code for Chg Fwd Diagnoses Status post delivery Z98.891
[2022-12-09] MEDS: ibuprofen 800 mg tablet PO (08:16)
[2022-12-09] MEDS: docusate sodium 100 mg Capsule PO (08:17)
[2022-12-09] MEDS: prenatal vitamin Capsule 1 CAP PO (08:17)
[2022-12-09 10:00] VITALS: BP 125/67; PULSE 85; O2SAT 98
[2022-12-09] MEDS: HYDROcodone-acetaminophen 5-325 mg Tablet PO (12:51)
[2022-12-09 13:41] VITALS: BP 132/65; PULSE 72
== END 2022-12-09 14:30 | disposition home or self-care (01) | DRG 788 ==
LOC: OPOB 12-06 05:03 → OBGYN 12-06 05:03
PROVIDERS: Admitting Provider Obstetrics & Gynecology; PCP Family Medicine; Visit Provider Obstetrics & Gynecology
PROC: 10D00Z1 Extraction of Products of Conception, Low, Open Approach (ICD-10-PCS; CPT 59514; principal; 2022-12-07 17:00)
DX: O24.429 Gestational diabetes mellitus in childbirth, unspecified control (principal); O62.8 Other abnormalities of forces of labor; O48.0 Post-term pregnancy; Z3A.40 40 weeks gestation of pregnancy; O76 Abnormality in fetal heart rate and rhythm complicating labor and delivery; Z37.0 Single live birth
CPT/HCPCS: 36415; 36416; 51702; 59025; 59409; 76770; 82962; 85025; 85027; 96372; 96374; 96376; 99211; J0330; J0690; J1100; J1885; J2274; J2400; J2405; J2590; J2704; J2765; J2795; J3010; J3105; J3490; J7030; J7040; J7120; J7121

== ENCOUNTER → 2023-01-22 08:32 | Outpatient (BNVA) | payer OTHER, BC, MEDICAID, SELFPAY | PROVIDERS: PCP Family Medicine; Visit Provider Obstetrics & Gynecology | DX: Z39.2 Encounter for routine postpartum follow-up (principal) | CPT/HCPCS: 82950; 82951; 85025 ==

== ENCOUNTER 2023-04-16 07:23 | Outpatient (CLI) | payer OTHER, BC, MEDICAID, SELFPAY ==
[2023-04-16 09:15] LABS: Free T4 Free Thyroxine 1.15 ng/dL (0.82-1.77); Thyroid Stimulating Hormone 2.18 uIU/mL (0.27-4.20)
[2023-04-16 10:43] LABS: Estmated Average Glucose 97
[2023-04-17 11:34] LABS: T3 Total 127 ng/dL (76-181)
== END 2023-04-16 07:24 | disposition home or self-care (01) ==
LOC: LAB 07:24
PROVIDERS: PCP Family Medicine; Visit Provider Internal Medicine
DX: O24.93 Unspecified diabetes mellitus in the puerperium (principal); E07.9 Disorder of thyroid, unspecified; Z79.899 Other long term (current) drug therapy
CPT/HCPCS: 36415; 83036; 84439; 84443; 84480

== ENCOUNTER → 2023-09-21 11:01 | Outpatient (BNVA) | payer OTHER, BC, MEDICAID, SELFPAY | PROVIDERS: PCP Family Medicine; Visit Provider Nurse Practitioner Women's Health | DX: R39.9 Unspecified symptoms and signs involving the genitourinary system (principal) | CPT/HCPCS: 84315; 87086 ==

== ENCOUNTER → 2023-11-09 11:51 | Outpatient (BNVA) | payer OTHER, BC, MEDICAID, SELFPAY | PROVIDERS: PCP Family Medicine; Visit Provider Internal Medicine | DX: O24.93 Unspecified diabetes mellitus in the puerperium (principal); Z83.49 Family history of other endocrine, nutritional and metabolic diseases; Z39.1 Encounter for care and examination of lactating mother; R63.5 Abnormal weight gain | CPT/HCPCS: 36415; 83036; 84439; 84443 ==

== ENCOUNTER → 2024-01-23 11:35 | Outpatient (BNVA) | payer BC, MEDICAID, SELFPAY | PROVIDERS: PCP Family Medicine; Visit Provider Nurse Practitioner Women's Health | DX: Z12.4 Encounter for screening for malignant neoplasm of cervix (principal) | CPT/HCPCS: 88175 ==

== ENCOUNTER → 2024-01-28 10:23 | Outpatient (BNVA) | payer BC, MEDICAID, SELFPAY | PROVIDERS: PCP Family Medicine; Visit Provider Nurse Practitioner Women's Health | DX: D25.2 Subserosal leiomyoma of uterus (principal); N88.8 Other specified noninflammatory disorders of cervix uteri | CPT/HCPCS: 76830 ==

== ENCOUNTER → 2024-05-15 10:55 | Outpatient (BNVA) | payer BC, MEDICAID, SELFPAY | PROVIDERS: PCP Family Medicine; Visit Provider Nurse Practitioner Women's Health | DX: N91.2 Amenorrhea, unspecified (principal) | CPT/HCPCS: 84702 ==

== ENCOUNTER → 2024-05-21 10:41 | Outpatient (BNVA) | payer BC, MEDICAID, SELFPAY | PROVIDERS: PCP Family Medicine; Visit Provider Nurse Practitioner Women's Health | DX: Z32.01 Encounter for pregnancy test, result positive (principal) | CPT/HCPCS: 84702 ==

== ENCOUNTER 2024-05-23 10:10 | Outpatient (CLI) | payer MEDICAID, SELFPAY ==
[2024-05-23 11:05] LABS: HCG Quantitative 33.69 mIU/mL
== END 2024-05-23 10:11 | disposition home or self-care (01) ==
PROVIDERS: Nurse Practitioner Women's Health; PCP Family Medicine; Visit Provider Family Medicine
DX: O36.80X0 Pregnancy with inconclusive fetal viability, not applicable or unspecified (principal)
CPT/HCPCS: 36415; 84702

== ENCOUNTER 2024-08-05 09:41 | Outpatient (CLI) | payer OTHER, SELFPAY ==
[2024-08-05 10:58] LABS: Free T4 Free Thyroxine 1.19 ng/dL (0.82-1.77); Testosterone Total 23.5 ng/dL (8.4-48.1); Thyroid Stimulating Hormone 1.97 uIU/mL (0.27-4.20)
[2024-08-05 11:52] LABS: Prolactin 11.31 ng/mL (4.8-23.3)
[2024-08-06 07:05] LABS: T3 Total 125 ng/dL (76-181)
== END 2024-08-05 09:42 | disposition home or self-care (01) ==
LOC: LAB 09:43
PROVIDERS: PCP Family Medicine; Visit Provider Internal Medicine
DX: O24.93 Unspecified diabetes mellitus in the puerperium (principal); Z39.1 Encounter for care and examination of lactating mother; Z83.49 Family history of other endocrine, nutritional and metabolic diseases; R63.5 Abnormal weight gain
CPT/HCPCS: 36415; 84146; 84403; 84439; 84443; 84480

== ENCOUNTER → 2024-08-06 10:12 | Outpatient (BNVA) | payer OTHER, SELFPAY | PROVIDERS: PCP Family Medicine; Visit Provider Nurse Practitioner Women's Health | DX: D25.2 Subserosal leiomyoma of uterus (principal) | CPT/HCPCS: 76830 ==

== ENCOUNTER 2024-12-03 15:47 | Outpatient (CLI) | payer OTHER, SELFPAY | END 2024-12-03 15:48 | disposition home or self-care (01) | PROVIDERS: PCP Family Medicine; Visit Provider Nurse Practitioner Women's Health | DX: N92.6 Irregular menstruation, unspecified (principal) | CPT/HCPCS: 36415; 84702 ==

== ENCOUNTER 2024-12-05 06:53 | Outpatient (CLI) | payer OTHER, SELFPAY | END 2024-12-05 06:54 | disposition home or self-care (01) | PROVIDERS: PCP Family Medicine; Visit Provider Nurse Practitioner Women's Health | DX: Z01.89 Encounter for other specified special examinations (principal) | CPT/HCPCS: 36415; 84702 ==

== ENCOUNTER → 2024-12-17 12:28 | Outpatient (BNVA) | payer OTHER, BC, MEDICAID, SELFPAY | PROVIDERS: PCP Family Medicine; Visit Provider Nurse Practitioner Women's Health | DX: Z36.87 Encounter for antenatal screening for uncertain dates (principal) | CPT/HCPCS: 76817 ==

== ENCOUNTER 2025-01-04 14:48 | Emergency (ER) | payer OTHER, BC, MEDICAID, SELFPAY ==
--- OUTSIDE RECORDS SUMMARY | 2025-01-04 14:51 | XMS_ITS | Patient Health Record ---
Author Organization [facility] Address [address] [place] [address] Care Team Providers Care Social Work Manager Name Role Phone Scot Coyle Unavailable [phone] Reason For Referral No Information Medications Medication SIG (Take, Route, Frequency, Duration) Notes Start Date End Date Status Singulair 10 MG Tablet Take 1 tablet(s) by mouth each evening for allergies Oral; Duration: 30 Singulair (Montelukast Sodium) 10mg Tablet Take 1 tablet(s) by mouth each evening for allergies #30 (Thirty) tablet(s) 11/10/2013 Active Immunizations Vaccine Route Administration Date Status Comme nts Flu vaccine no Preserv 3 and > IM Intramuscular 02/23/2012 Administered Flu vaccine no Preserv 3 and > IM Intramuscular 02/21/2010 Administered Social History Social History Additional Details Category Social Info Options Details zzMigrated Social History Migrated Social History Advance Directive: Current and Verified Supported by Advance Directive Signed on 01/25/11, Allow IV and tube nutrition, allow surgery, allow antibiotics, allow mechanical ventilator, allow radiation therapy, allow dialysis, allow chemotherapy, allow CPR Other Allow Organ Donation: Patient refuses Organ Donation Accepted Portal User: User Name: [email or web address] Initial Password [email or web address] Problems Problem Type SNOMED Code ICD Code Onset Dates Problem Status W/U Status Risk Notes Problem Information temporarily unavailable Low back pain (724.2) 10/31/19 17 Active confirmed [id number]- Problem Information temporarily unavailable Premenstrual syndrome (625.4) 11/23/19 17 Active confirmed [id number]- Problem Information temporarily unavailable 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) 01/05/20 07 Problem resolved confirmed [id number]- Problem Information temporarily unavailable Scabies (133.0) 10/10/19 17 Problem resolved confirmed [id number]- Problem Information temporarily unavailable Generalized anxiety disorder (300.02) 10/31/19 17 Problem resolved confirmed [id number]- Problem Information temporarily unavailable Hematuria (599.7) 05/14/19 10 Problem resolved confirmed [id number]- Problem Information temporarily unavailable Impetigo (684) 08/01/19 06 Problem resolved confirmed [id number]- Problem Information temporarily unavailable Erythema multiforme (695.1) 06/11/19 07 Problem resolved confirmed [id number]- Problem Information temporarily unavailable Other erythema multiforme (695.19) 07/28/19 17 Problem resolved confirmed [id number]- Problem Information temporarily unavailable Cough (786.2) 03/04/20 08 Problem resolved confirmed [id number]- Problem Information temporarily unavailable Dysuria (788.1) 02/20/20 08 Problem resolved confirmed [id number]- Problem Information temporarily unavailable Chronic cough (786.2) 12/07/19 17 Problem resolved confirmed [id number]- Problem Information temporarily unavailable Rash (782.1) 12/16/19 06 Problem resolved confirmed [id number]- Problem Information temporarily unavailable Fatigue (780.79) 06/14/19 10 Problem resolved confirmed [id number]- Problem Information temporarily unavailable Well child exam (V20.2) 07/18/19 14 Problem resolved confirmed [id number]- Problem Information temporarily unavailable Pustular acne (706.1) 12/26/19 13 Problem resolved confirmed [id number]- Problem Information temporarily unavailable Other abnormal findings on blood examination (790.99) 09/28/19 13 Problem resolved confirmed [id number]- Problem Information temporarily unavailable Sore Throat (462) 07/04/19 08 Problem resolved confirmed [id number]- Problem Information temporarily unavailable Acne (706.1) 09/28/19 13 Problem resolved confirmed [id number]- Problem Information temporarily unavailable Arm Pain (729.5) 05/05/20 05 Problem resolved confirmed [id number]- Problem Information temporarily unavailable Generalized abdominal pain (789.07) 04/26/20 09 Problem resolved confirmed [id number]- Problem Information temporarily unavailable Influenza, with other respiratory manifestation (487.1) 06/10/19 08 Problem resolved confirmed [id number] 11- Problem Information temporarily unavailable Laceration of finger (883.0) 06/14/19 10 Problem resolved confirmed [id number] 11- Problem Information temporarily unavailable Foot pain (729.5) 02/23/20 12 Problem resolved confirmed [id number] 11- Problem Information temporarily unavailable Leg swelling (729.81) 06/08/19 18 Problem resolved confirmed [id number]- Problem Information temporarily unavailable Rib pain (786.50) 02/22/20 10 Problem resolved confirmed [id number] 11- Problem Information temporarily unavailable Routine pediatric physical exam (V20.2) 07/14/19 06 Problem resolved confirmed [id number] 11- Problem Information temporarily unavailable Sports physical (V70.3) 01/10/20 13 Problem resolved confirmed [id number] 11- Problem Information temporarily unavailable Streptococcal pneumonia, NEC (482.39) 05/14/19 10 Problem resolved confirmed [id number] 11- Problem Information temporarily unavailable Vaccination against other viral diseases, Influenza (V04.81) 02/23/20 12 Problem resolved confirmed [id number] 11- Problem Information temporarily unavailable Acute upper respiratory infection (465.8) 05/02/20 06 Problem resolved confirmed [id number] 11- Problem Information temporarily unavailable Allergic rhinitis, pollen-induced (477.0) 10/12/19 13 Problem resolved confirmed [id number] 11- Problem Information temporarily unavailable Hypertrophy of tonsils and adenoids (474.10) 10/17/19 08 Problem resolved confirmed [id number] 11- Problem Information temporarily unavailable Finger onychomycosis (110.1) 02/20/20 08 Problem resolved confirmed [id number] 11- Problem Information temporarily unavailable Unspecified skin lesion (239.2) 05/14/19 10 Problem resolved confirmed [id number] 11- Problem Information temporarily unavailable Disorders of menstruation and other abnormal uterine bleeding, other (626.8) 11/23/19 17 Problem resolved confirmed [id number] 11- Plan Of Treatment No Information Insurance Providers Payer Name Payer Address Payer Phone Subscriber Number Group Number Insured Name Patient Relationship to Insured Coverage Start Date Coverage End Date [facility] Plan Medicaid Replacement [address] [place] [phone] [id number] Lupe Sainz Self - patient is the insured 7 Medical (General) History Surgical History Surgery Date(Month/Year) NONE
--- NOTE | 2025-01-04 15:04 | USR_ITS ---
PROCEDURE INFORMATION: Exam: US First Trimester, Transabdominal and US , Transvaginal Exam date and time: 01/04/2025 4:24 PM Age: 29 years old Clinical indication: Lmp or gestational age (in weeks): 8w2d per PT. 8w4d per US today; Antepartum complications; Bleeding; ; Prior surgery; Surgery date: 6+ months; Surgery type: Unsure of dates. HX of c section; Additional info: Heavy vaginal discharge, LABS AND CLINICAL REPORTS: Last menstrual period start date: Unknown Gestational age (Established): 8 w 2 d Estimated due date (Established): 08/14/2025 TECHNIQUE: Imaging protocol: Real-time transabdominal obstetrical ultrasound of the maternal pelvis and a first trimester , less than 14 weeks 0 days, with image documentation. Transvaginal imaging was used for better evaluation of the fetus, adnexa, and/or cervix. COMPARISON: US OB transvaginal [id number] 12/17/2024 12:35 PM FINDINGS: GESTATION: Gestation: Yolk sac measures 3 mm. Embryo is seen with crown-rump length of 2.0 cm corresponding to sonographic age of 8 weeks and 4 days. Embryo/ cardiac activity (BPM): 171 bpm Extra-embryonic membranes/Placenta: There is suggestion of a small subchorionic hemorrhage measuring 1.8 x 0.8 x 1.5 cm. Amniotic/Chorionic fluid: Amniotic and extra-amniotic fluid are normal for gestational age. BIOMETRY: Gestational age (AUA): 8 weeks and 4 days. MATERNAL: Uterus: Unremarkable. Cervix: Trace fluid in the cervix. Cervical length 4 cm. Right ovary/adnexa: Obscured by lack of adequate acoustic window. Left ovary/adnexa: Obscured by lack of adequate acoustic window. Intraperitoneal space: Trace free fluid in the cul-de-sac and adnexal regions. US/US OB <=14 wk fetus w transvag IMPRESSION: Single living intrauterine embryo with sonographic age of 8 weeks and 4 days. Small subchorionic hemorrhage.
[2025-01-04 15:30] VITALS: BMI 33.5
[2025-01-04 16:31] LABS: Glucose Urine UA Negative (Normal); Nitrate Urine Negative (Negative); Specific Gravity, Urine 1.024 (1.005-1.030)
[2025-01-04 16:33] LABS: Hematocrit 36.7 % (36-47); Hemoglobin 12.10 g/dL (11.27-16.99); Mean Corpuscular HGB Conc 33.0 g/dL (30-55); Mean Corpuscular Hemoglobin 29.0 pg (27-33); Mean Corpuscular Volume 88.0 fl (85-98); Nucleated Red Blood Cells % 0 %; Platelet Count 274 10^3/cmm (157-399); Red Blood Count 4.17 10^6/uL (3.85-5.65); White Blood Count 7.90 10^3/uL (3.29-11.43)
[2025-01-04 16:36] LABS: Add Urine Microscopic? YES
--- NOTE | 2025-01-04 16:36 | ED_ITS ---
HPI - 2 General: Chief complaint: Vaginal Bleeding Stated complaint: heavy discharge(8wks preg) Time Seen by Provider: 01/04/25 15:02 History of Present Illness: 29-year-old female presents emergency ro om with intermittent spotting overnight some of the blood appears to be older and brown she has very slight cramping. She has not at this time denies dysuria urgency or frequency. She is approximately 8 weeks gestation based on her LMP. She usually sees Dr. Adhikari. Patient is G3, P2 SAB 1 live 1 Associated symptoms: Deny abdominal pain or dysuria Related Data Home Medications ?Medication ?Instructions ?Recorded ?Confirmed buspirone 15 mg tablet mg PO 02/12/24 02/12/24 glucosamine-chondroitin 1,500 mg See Rx Instructions P O .COMPLEX 02/12/24 02/12/24 -1,200 mg/30 mL oral liquid Knee pain Previous Rx's ?Medication ?Instructions ?Recorded metformin 500 mg tablet,extended 1,000 mg (2 x 500 mg) PO BID #90 02/12/24 release 24 hr tabs blood sugar diagnostic #50 ea 08/15/24 blood-glucose meter #1 ea 08/15/24 lancets #200 ea 08/15/24 Allergies Allergy/AdvReac Type Severity Reaction Status Date / Time No Known Allergies Allergy Verified 01/04/25 15:30 Review of Systems 2 Const: Denies: fever(s) or chills Card: Denies: chest pain Resp: Denies: dyspnea GI: Denies: abdominal pain : Denies: dysuria, urinary frequency or urinary urgency PFSH ED 2 PFSH: Medical History Anxiety She has been managed with paxil; she saw her PCP and she abruptly stopped it 03/2022 and has been managed w/o medication so far. Onychocryptosis No pertinent past medical history neghx: htn,dm,thyroid,dvt/pe PCP: Dr. Almeida Surgical History Status post delivery (~12/07/22) LTCS performed by Dr. Gee for FTP and GDM H/O eye surgery History of appendectomy (~03/02/16) Family History Grandmother Diabetes Paternal grandmother Hypertension Paternal grandmother Heart disease Paternal grandmother Hyperlipidemia Maternal grandmother Paternal grandmother Family history of thyroid problem Paternal grandmother Breast cancer Paternal--dx age unknown Stroke Paternal Family/Other Diabetes Paternal uncle Father Hypertension Grandfather Hypertension Paternal grandfather Heart disease Paternal grandfather Stroke Paternal grandfather Hyperlipidemia Maternal grandfather Paternal grandfather Denies family history of Colon cancer Ovarian cancer Uterine cancer Social History Smoking and tobacco/nicotine status: never used tobacco/nicotine Physical Exam 2 Const: COMMON NORMALS: no acute distress GENERAL APPEARANCE: cooperative and comfortable ORIENTATION/CONSCIOUSNESS: Yes awake, Yes oriented to person, Yes oriented to place and Yes oriented to time HENMT: COMMON NORMALS: normocephalic, atraumatic and hearing grossly normal bilaterally HEAD & SCALP: normocephalic and atraumatic Resp: COMMON NORMALS: normal respiratory effort, No retractions, No use of accessory muscles and clear to auscultation bilaterally AUSCULTATION: clear to auscultation bilaterally Cardio: COMMON NORMALS: regular rate, regular rhythm and No murmurs present (Cardio) RATE: regular rate RHYTHM: regular rhythm GI: COMMON NORMALS: Soft to palpation and No hepatosplenomegaly present A USCULTATION: Yes normoactive bowel sounds PALPATION: Yes Soft to palpation, No Tenderness to palpation present (GI), No Guarding due to palpation present (GI) and Yes No hepatosplenomegaly present Extremity: COMMON NORMALS: normal to inspection, capillary refill normal, no clubbing, cyanosis or edema, no calf tenderness and no pedal edema Neuro: SENSORIUM/ORIENTATION: Yes oriented to person, Yes oriented to place and Yes oriented to time Skin: COMMON NORMALS: no rashes or lesions noted GENERAL SKIN EXAM: no rashes or lesions noted Course 2 Vital Signs: Vital signs: Vital Signs Pulse Rate 74 01/04/25 17:16 Blood Pressure 128/60 01/04/25 17:16 Pulse Oximetry 98 01/04/25 17:16 Oxygen Delivery Me thod Room Air 01/04/25 16:53 MDM - OB/Uterine Contractions Medical Decision Making Small subchorionic hemorrhage on ultrasound IUP with heart tones normal. Beta-hCG consistent with gestational age. Discharged home. Advised patient she is likely to continue of some intermittent bleeding avoid strenuous activities contact her primary OB regarding the subchorionic hemorrhage follow-up further instructions over the next scheduled appointment. Return if has heavier bleeding or change in symptoms. Patient is O+ Medical Records I reviewed the patient's medical records. Lab Data 01/04/25 16:15 Radiology Impressions Obstetrics Ultrasound 01/04/25 15:04 IMPRESSION: Single living intrauterine embryo with sonographic age of 8 weeks and 4 days. Small subchorionic hemorrhage. ADDENDUM: 01/04/25 1713 Both ovaries were visualized and appeared within normal limits. Laboratory Results WBC 7.90 10^3/uL (3.29-11.43) 01/04/25 16:15 RBC 4.17 10^6/uL (3.85-5.65) 01/04/25 16:15 Hgb 12.10 g/dL (11.27-16.99) 01/04/25 16:15 Hct 36.7 % (36-47) 01/04/25 16:15 MCV 88.0 fl (85-98) 01/04/25 16:15 MCH 29.0 pg (27-33) 01/04/25 16:15 MCHC 33.0 g/dL (30-55) 01/04/25 16:15 RDW 14.7 % (12.1-15.1) 01/04/25 16:15 Plt Count 274 10^3/cmm (157-399) 01/04/25 16:15 MPV 9.4 fL (7.4-10.4) 01/04/25 16:15 Neut % (Auto) 42.2 % 01/04/25 16:15 Lymph % (Auto) 50.0 % 01/04/25 16:15 Runnels % (Auto) 6.6 % 01/04/25 16:15 Eos % (Auto) 0.6 % 01/04/25 16:15 Baso % (Auto) 0.3 % 01/04/25 16:15 Neut # (Auto) 3.34 10^3/uL (1.8-7.7) 01/04/25 16:15 Lymph # (Auto) 4.0 10^3/uL (0.8-4.8) 01/04/25 16:15 Runnels # (Auto) 0.5 10^3/uL (0.2-0.9) 01/04/25 16:15 Eos # (Auto) 0.1 10^3/uL (0.0-0.8) 01/04/25 16:15 Baso # (Auto) 0.0 10^3/uL (0.0-0.1) 01/04/25 16:15 Nucleated RBC % (auto) 0 % 01/04/25 16:15 Nucleated RBCs # 0.0 /100WBC 01/04/25 16:15 Ser , Semi-Qnt 24939.00 mIU/mL 01/04/25 16:15 Urine Color Yellow (Yellow) 01/04/25 16:11 Urine Appearance Clear (CLEAR) 01/04/25 16:11 Urine pH 5.5 (5-7) 01/04/25 16:11 Ur Specific [place] 1.024 (1.005-1.030) 01/04/25 16:11 Urine Protein Negative (Negative) 01/04/25 16:11 Urine Glucose (UA) Negative (Normal) 01/04/25 16:11 Urine Ketones Trace (Negative) 01/04/25 16:11 Urine Blood Negative (Negative) 01/04/25 16:11 Urine Nitrate Negative (Negative) 01/04/25 16:11 Urine Bilirubin Negative (Negative) 01/04/25 16:11 Urine Urobilinogen 1.0 mg/dL (Negative) 01/04/25 16:11 Ur Leukocyte Esterase Negative (Negative) 01/04/25 16:11 Urine RBC 0-2 /hpf (0-2) 01/04/25 16:11 Urine WBC 0-5 /hpf (0-5) 01/04/25 16:11 Ur Squamous Epith Cells 0-5 /hpf (0-5) 01/04/25 16:11 Amorphous Sediment Not Reportable 01/04/25 16:11 Urine Bacteria None seen /hpf (NONE) 01/04/25 16:11 Hyaline Casts 0.40 /lpf 01/04/25 16:11 Blood Type O Positive 01/04/25 16:15 Rho(D) Type Rh positive 01/04/25 16:15 Antibody Screen Negative 01/04/25 16:15 All radiology interpretation(s) finalized by discharge Discharge Plan Discharge Patient Disposition: Home Clinical Impression: Subchorionic hemorrhage in first trimester, Vaginal bleeding in patient after first trimester Condition: Stable Prescriptions: No Action buspirone 15 mg tablet PO glucosamine-chondroitin 1,500-1,200 mg/30 mL liquid See Rx Instructions PO .COMPLEX Rx Instructions: 1500 mg - 1200 mg/30 ml orally; metformin 500 mg tablet extended release 24 hr 1,000 mg PO BID Qty: 90 0RF (DME) blood-glucose meter Kit See Rx Instructions .Route Qty: 1 0RF Rx Instructions: As directed (DME) lancets Misc See Rx Instructions .Route Qty: 200 3RF Rx Instructions: As directed (DME) blood sugar diagnostic Strip See Rx Instructions .Route Qty: 50 3RF Rx Instructions: As directed Discharge Orders: Discharge ED (Routine); Ordered 01/04/25 Ordered By: Paramjit Medina Referrals: Bret Almeida MD [Primary Care Provider, Family Practice] Discharge Diet: Usual diet Discharge Activity: Increase activity as tolerated Patient Instructions: Opioid Safety, Pain Management, Patient Portal & Ernst Instructions Activity Restrictions/Additional Instructions: [facility]. It is very important that you follow up as instructed or that you return to the Emergency Department should you have concerns or if your condition changes or worsens in any way. Emergency department visits are focused on emergent conditions, in some cases you may require further evaluation on an outpatient basis. You were seen in the emergency room with complaints of vaginal bleeding and cramping. You reported to us you are approximately 8 weeks gestation. Ultrasound done in the ER confirmed this matches with the dates that you reported to us. Ultrasound shows a subchorionic hemorrhage. These are fairly typical in . They can be monitored. Avoid exertional activities. Follow-up with Dr. Adhikari as soon as you are able contact his office this coming week just to advise them that you were seen. They will be able to pull the ultrasound report from the hospital records and review it. Follow-up with Dr. Adhikari as per his recommendation. Return to the emergency room or to see Dr. Adhikari sooner if you have increased bleeding. It is likely you will continue to have some occasional light spotting if it becomes heavy you should be reevaluated. (Please note that included in your discharge packet is information concerning opioid safety and pain management. This information is given to all patients were discharged from the ER regardless of their discharge diagnosis or the medicines they usually take or are prescribed.) Print Language: Hungarian Coding Level of Care Code ED Postal Service Clerk for Monse Don
[2025-01-04 16:53] VITALS: BP 130/53; PULSE 80; O2SAT 98
[2025-01-04 17:16] VITALS: BP 128/60; PULSE 74; O2SAT 98
== END 2025-01-04 17:17 | disposition home or self-care (01) ==
PROVIDERS: Physician Assistant; Emergency Provider Family Medicine; PCP Family Medicine
DX: O20.8 Other hemorrhage in early pregnancy (principal); Z3A.08 8 weeks gestation of pregnancy
CPT/HCPCS: 76801; 76817; 81001; 84702; 85025; 86850; 86900; 99284

== ENCOUNTER 2025-01-10 07:22 | Emergency (ER) | payer OTHER, BC, MEDICAID, SELFPAY ==
[2025-01-10 07:26] VITALS: BP 131/88; PULSE 78; RESP 17; TEMP 36.9; O2SAT 99; BMI 33.1
--- OUTSIDE RECORDS SUMMARY | 2025-01-10 07:27 | XMS_ITS | Patient Health Record ---
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) 01/05/20 07 Problem resolved confirmed [id number] 11- Problem Scabies (651803764) Scabies (133.0) 10/10/19 17 Problem resolved confirmed [id number] 11- Problem Generalized anxiety disorder (35605392) Generalized anxiety disorder (300.02) 10/31/19 17 Problem resolved confirmed [id number] 11- Problem Hematuria (82686238) Hematuria (599.7) 05/14/19 10 Problem resolved confirmed [id number] 11- Problem Impetigo (61454058) Impetigo (684) 08/01/19 06 Problem resolved confirmed [id number] 11- Problem Erythema multiforme (37062827) Erythema multiforme (695.1) 06/11/19 07 Problem resolved confirmed [id number] 11- Problem Erythema multiforme (57560962) Other erythema multiforme (695.19) 07/28/19 17 Problem resolved confirmed [id number] 11- Problem Cough (10035765) Cough (786.2) 03/04/20 08 Problem resolved confirmed [id number] 11- Problem Dysuria (86841552) Dysuria (788.1) 02/20/20 08 Problem resolved confirmed [id number] 11- Problem Chronic cough (59270859) Chronic cough (786.2) 12/07/19 17 Problem resolved confirmed [id number] 11- Problem Rash (224025565) Rash (782.1) 12/16/19 06 Problem resolved confirmed [id number] 11- Problem Fatigue (53756983) Fatigue (780.79) 06/14/19 10 Problem resolved confirmed [id number] 11- Problem Well child visit (264200070) Well child exam (V20.2) 07/18/19 14 Problem resolved confirmed [id number] 11- Problem Pustular acne (06711764) Pustular acne (706.1) 12/26/19 13 Problem resolved confirmed [id number] 11- Problem Disorder of hematopoietic system (04764591) Other abnormal findings on blood examination (790.99) 09/28/19 13 Problem resolved confirmed [id number] 11- Problem Sore throat (538022032) Sore Throat (462) 07/04/19 08 Problem resolved confirmed [id number] 11- Problem Acne (82907267) Acne (706.1) 09/28/19 13 Problem resolved confirmed [id number] 11- Problem Pain in limb (09627810) Arm Pain (729.5) 05/05/20 05 Problem resolved confirmed [id number] 11- Problem Generalized abdominal pain (733637353) Generalized abdominal pain (789.07) 04/26/20 09 Problem resolved confirmed [id number] 11- Problem Influenza (2343625) Influenza, with other respiratory manifestation (487.1) 06/10/19 08 Problem resolved confirmed [id number] 11- Problem Laceration of finger (747752688) Laceration of finger (883.0) 06/14/19 10 Problem resolved confirmed [id number] 11- Problem Foot pain (18088168) Foot pain (729.5) 02/23/20 12 Problem resolved confirmed [id number] 11- Problem Leg swelling symptom (397132757) Leg swelling (729.81) 06/08/19 18 Problem resolved confirmed [id number] 11- Problem Rib pain (758245503) Rib pain (786.50) 02/22/20 10 Problem resolved confirmed [id number] 11- Problem Well child visit (104870382) Routine pediatric physical exam (V20.2) 07/14/19 06 Problem resolved confirmed [id number] 11- Problem History and physical examination, sports participation (773394956) Sports physical (V70.3) 01/10/20 13 Problem resolved confirmed [id number] 11- Problem Pneumonia caused by Streptococcus (17987043) Streptococcal pneumonia, NEC (482.39) 05/14/19 10 Problem resolved confirmed [id number] 11- Problem Needs influenza immunization (788577919) Vaccination against other viral diseases, Influenza (V04.81) 02/23/20 12 Problem resolved confirmed [id number] 11- Problem Acute upper respiratory infection (83397332) Acute upper respiratory infection (465.8) 05/02/20 06 Problem resolved confirmed [id number] 11- Problem Allergic rhinitis caused by pollen (07744286) Allergic rhinitis, pollen-induced (477.0) 10/12/19 13 Problem resolved confirmed [id number] 11- Problem Hypertrophy of tonsils AND adenoids (43712388) Hypertrophy of tonsils and adenoids (474.10) 10/17/19 08 Problem resolved confirmed [id number] 11- Problem Onychomycosis caused by dermatophyte (627259014) Finger onychomycosis (110.1) 02/20/20 08 Problem resolved confirmed [id number] 11- Problem Neoplasm of uncertain behavior of connective and other soft tissues (34023127) Unspecified skin lesion (239.2) 05/14/19 10 Problem resolved confirmed [id number] 11- Problem Menstrual disorder (780992787) Disorders of menstruation and other abnormal uterine bleeding, other (626.8) 11/23/19 17 Problem resolved confirmed [id number] 11- Plan Of Treatment No Information Insurance Providers Payer Name Payer Address Payer Phone Subscriber Number Group Number Insured Name Patient Relationship to Insured Coverage Start Date Coverage End Date Home [facility] Health Plan Medicaid Replacement [address] [facility] [place] [phone] [id number] Lupe Sainz Self - patient is the insured 7 Medical (General) History Surgical History Surgery Date(Month/Year) NONE
--- NOTE | 2025-01-10 07:31 | USR_ITS ---
PROCEDURE INFORMATION: Exam: US First Trimester, Transabdominal Exam date and time: 01/10/2025 8:22 AM Age: 29 years old Clinical indication: complicated by abdominal or pelvic pain; Lower; First trimester (<14 weeks 0 days); Gestational age or lmp: 9w; ; Additional info: Vaginal bleeding, early LABS AND CLINICAL REPORTS: Last menstrual period start date: Unknown TECHNIQUE: Imaging protocol: Real-time transabdominal obstetrical ultrasound of the maternal pelvis and a first trimester , less than 14 weeks 0 days, with image documentation. COMPARISON: US OB <=14 wk fetus w transvag 01/04/2025 4:24 PM FINDINGS: GESTATION: Gestation: No intrauterine gestation identified. MATERNAL: Uterus: The uterus measures 9.1 x 4.1 x 6.5 cm. The endometrium is markedly thickened and heterogeneous. It measures 2.8 cm in diameter. The gestational sac, pole are no longer identified. Right ovary/adnexa: Not evaluated Left ovary/adnexa: Not evaluated Urinary bladder: Transabdominal ultrasound was performed. The bladder is not distended. US/US OB <= 14 weeks fetus [id number] IMPRESSION: Findings consistent with incomplete with products of conception and clots still present in the uterus.
--- NOTE | 2025-01-10 07:31 | W.ED.ABDPA2 ---
HPI - Abdominal Pain General: Chief Complaint: Abdominal Pain Stated Complaint: 9 Weeks ABD Pain bleeding small clots Time Seen by Provider: 01/10/25 07:31 History of Present Illness: 29-year-old female who presents to the emergency room with vaginal bleeding. She is approximately 9 weeks by an ultrasound that was done around a week ago. She is having cramping and passing large clots. No fever. No nausea or vomiting. Related Data Home Medications ?Medication ?Instructions ?Recorded ?Confirmed fluoxetine 20 mg capsule 20 mg PO DAILY 01/10/25 01/10/25 vit no.95-ferrous 1 tab PO DAILY 01/10/25 01/10/25 fumarate 28 mg-folic acid 800 mcg tablet () Previous Rx's ?Medication ?Instructions ?Recorded blood sugar diagnostic #50 ea 08/15/24 blood-glucose meter #1 ea 08/15/24 lancets #200 08/15/24 Allergies Allergy/AdvReac Type Severity Reaction Status Date / Time No Known Allergies Allergy Verified 01/04/25 15:30 Review of Systems Narrative: Constitutional symptoms: Negative except as documented in HPI. Skin symptoms: Negative except as documented in HPI. Eye symptoms: Negative except as documented in HPI. ENMT symptoms: Negative except as documented in HPI. Respiratory symptoms: Negative except as documented in HPI. Cardiovascular symptoms: Negative except as documented in HPI. Gastrointestinal symptoms: Negative except as documented in HPI. Genitourinary symptoms: Negative except as documented in HPI. Musculoskeletal symptoms: Negative except as documented in HPI. Neurologic symptoms: Negative except as documented in HPI. Psychiatric symptoms: Negative except as documented in HPI. Endocrine symptoms: Negative except as documented in HPI. PFS ED PFSH: Medical History (Updated 01/10/25 @ 09:49 by Denia Tavera MD) Anxiety She has been managed with paxil; she saw her PCP and she abruptly stopped it 03/2022 and has been managed w/o medication so far. Onychocryptosis No pertinent past medical history neghx: htn,dm,thyroid,dvt/pe PCP: Dr. Almeida Surgical History Status post delivery (~12/07/22) LTCS performed by Dr. Gee for FTP and GDM H/O eye surgery History of appendectomy (~03/02/16) Family History Grandmother Diabetes Paternal grandmother Hypertension Paternal grandmother Heart disease Paternal grandmother Hyperlipidemia Maternal grandmother Paternal grandmother Family history of thyroid problem Paternal grandmother Breast cancer Paternal--dx age unknown Stroke Paternal Family/Other Diabetes Paternal uncle Father Hypertension Grandfather Hypertension Paternal grandfather Heart disease Paternal grandfather Stroke Paternal grandfather Hyperlipidemia Maternal grandfather Paternal grandfather Denies family history of Colon cancer Ovarian cancer Uterine cancer Social History Smoking and tobacco/nicotine status: never used tobacco/nicotine Physical Exam Narrative: EXAM NARRATIVE: General: Alert, no acute distress. Skin: Warm, dry. Head: Normocephalic, atraumatic. Neck: Supple, trachea midline. Eye: Extraocular movements are intact. Ears, nose, mouth and throat: mucosa moist. Cardiovascular: Regular, Normal peripheral perfusion. Respiratory: Lungs are clear to auscultation, respirations are non-labored, breath sounds are equal, Symmetrical chest wall expansion. Gastrointestinal: Soft, suprapubic cramping, Non distended Musculoskeletal: Normal ROM, no deformity. Neurological: Alert and oriented, No focal neurological deficit observed. Psychiatric: Cooperative, appropriate mood & affect. Course Vital Signs: Vital signs: Vital Signs Temperature 98.5 F 01/10/25 07:26 Pulse Rate 78 01/10/25 07:26 Respiratory Rate 17 01/10/25 07:26 Blood Pressure 131/88 01/10/25 07:26 Pulse Oximetry 99 01/10/25 07:26 Oxygen Delivery Me thod Room Air 01/10/25 07:26 MDM - Abdominal Pain Medical Decision Making Medical decision making: Differential diagnosis including but not limited to and based on the above HPI, review of systems and physical exam: for patient in early with vaginal bleeding and abdominal pain: Spontaneous , threatened . Urinary tract infection. ectopic . Orders placed to evaluate differential diagnosis based on the above differential, HPI and physical exam Lab Review: Laboratory results were reviewed and interpreted by myself the emergency room physician. No leukocytosis. No anemia. No renal failure. hCG is 65,000. Blood type is O+. Ultrasound: Findings show an incomplete with products of conception and clot still present. Consultation: I spoke with Dr. Sena who agrees with plan and recommends that I speak with [facility]'s on-call physician as far as follow-up goes. I reviewed the patient's medical record. Reexamination: Patient remained stable. No increased work of breathing. No altered mental status. No focal motor deficits. I have discussed findings and she understands. Consultation: I spoke with Dr. Moses who is on-call for Dr. Adhikari at [facility]. He is aware of the patient and they will see her early next week Assessment and plan: Incomplete miscarriage ?Offered pain medication patient first just to take Tylenol at home - Discharged home - Discussed plan with patient. Answered any questions. - Evaluation and treatment of this problem were appropriate in the emergency setting. Lab Data 01/10/25 07:56 01/10/25 07:56 Labs/Radiology: Radiology Impressions Ultrasound 01/10/25 07:31 IMPRESSION: Findings consistent with incomplete with products of conception and clots still present in the uterus. Laboratory Results WBC 8.62 10^3/uL (3.29-11.43) 01/10/25 07:56 RBC 4.24 10^6/uL (3.85-5.65) 01/10/25 07:56 Hgb 12.20 g/dL (11.27-16.99) 01/10/25 07:56 Hct 36.2 % (36-47) 01/10/25 07:56 MCV 85.4 fl (85-98) 01/10/25 07:56 MCH 28.8 pg (27-33) 01/10/25 07:56 MCHC 33.7 g/dL (30-55) 01/10/25 07:56 RDW 14.4 % (12.1-15.1) 01/10/25 07:56 Plt Count 254 10^3/cmm (157-399) 01/10/25 07:56 MPV 9.3 fL (7.4-10.4) 01/10/25 07:56 Neut % (Auto) 53.0 % 01/10/25 07:56 Lymph % (Auto) 39.3 % 01/10/25 07:56 Barren % (Auto) 6.6 % 01/10/25 07:56 Eos % (Auto) 0.6 % 01/10/25 07:56 Baso % (Auto) 0.3 % 01/10/25 07:56 Neut # (Auto) 4.56 10^3/uL (1.8-7.7) 01/10/25 07:56 Lymph # (Auto) 3.4 10^3/uL (0.8-4.8) 01/10/25 07:56 Barren # (Auto) 0.6 10^3/uL (0.2-0.9) 01/10/25 07:56 Eos # (Auto) 0.1 10^3/uL (0.0-0.8) 01/10/25 07:56 Baso # (Auto) 0.0 10^3/uL (0.0-0.1) 01/10/25 07:56 Nucleated RBC % (auto) 0 % 01/10/25 07:56 Nucleated RBCs # 0.0 /100WBC 01/10/25 07:56 Sodium 133 mmol/L (136-145) L 01/10/25 07:56 Potassium 3.9 mmol/L (3.5-5.1) 01/10/25 07:56 Chloride 102 mmol/L (98-107) 01/10/25 07:56 Carbon Dioxide 19 mmol/L (22-29) L 01/10/25 07:56 Anion Gap 15.9 (5-19) 01/10/25 07:56 BUN 7 mg/dL (6-20) 01/10/25 07:56 Creatinine 0.5 mg/dL (0.5-0.9) 01/10/25 07:56 GFR Calculation 148.0 mL/min (90-130) H 01/10/25 07:56 Glucose 84 mg/dL (65-115) 01/10/25 07:56 Calculated Osmolality 273 mOsm/kg (285-295) L 01/10/25 07:56 Calcium 8.8 mg/dL (8.5-10.5) 01/10/25 07:56 Total Bilirubin 0.3 mg/dL (0.15-1.2) 01/10/25 07:56 AST 19 U/L (0-32) 01/10/25 07:56 ALT 22 U/L (0-33) 01/10/25 07:56 Alkaline Phosphatase 79 U/L (35-105) 01/10/25 07:56 Total Protein 7.2 g/dL (6.6-8.7) 01/10/25 07:56 Albumin 3.9 g/dL (3.5-5.2) 01/10/25 07:56 Globulin 3.3 g/dL (1.3-4.6) 01/10/25 07:56 Ser , Semi-Qnt 32977.00 mIU/mL 01/10/25 07:56 Blood Type O Positive 01/10/25 07:56 Rho(D) Type Rh positive 01/10/25 07:56 All radiology interpretation(s) finalized by discharge Discharge Plan Discharge Patient Disposition: Home Clinical Impression: Incomplete miscarriage Condition: Stable Prescriptions: No Action (DME) blood-glucose meter Kit See Rx Instructions .Route Qty: 1 0RF Rx Instructions: As directed (DME) lancets Misc See Rx Instructions .Route Qty: 200 3RF Rx Instructions: As directed (DME) blood sugar diagnostic Strip See Rx Instructions .Route Qty: 50 3RF Rx Instructions: As directed fluoxetine 20 mg capsule 20 mg PO DAILY PNV no.95-ferrous fumarate-FA [] 28 mg iron- 800 mcg Tablet 1 tab PO DAILY Discharge Orders: Discharge ED (Routine); Ordered 01/10/25 Ordered By: Denia Tavera Referrals: Bret Almeida MD [Primary Care Provider, [facility]] Discharge Diet: Usual diet Discharge Activity: Increase activity as tolerated Patient Instructions: Miscarriage (ED), Opioid Safety, Pain Management, Patient Portal & Ernst Instructions Activity Restrictions/Additional Instructions: If you develop fever or worsening pain please return to the emergency room or seek urgent medical attention. Please call for an appointment with Dr. Adhikari first thing next week. Thank you for choosing [facility] for your healthcare needs today. You have been screened and evaluated and felt safe for discharge. Health conditions do change or evolve sometimes and as such it is important that you follow up with your Primary Doctor to be re checked, 3-5 days is a general good time frame for follow up. You are always welcome to return to the ED for re assessment if your symptoms are worsening or you have new concerns Print Language: Slovenian Coding Level of Care Code ED Negative Cleaner for Monse Don
[2025-01-10 08:06] LABS: Hematocrit 36.2 % (36-47); Hemoglobin 12.20 g/dL (11.27-16.99); Mean Corpuscular HGB Conc 33.7 g/dL (30-55); Mean Corpuscular Hemoglobin 28.8 pg (27-33); Mean Corpuscular Volume 85.4 fl (85-98); Nucleated Red Blood Cells % 0 %; Platelet Count 254 10^3/cmm (157-399); Red Blood Count 4.24 10^6/uL (3.85-5.65); White Blood Count 8.62 10^3/uL (3.29-11.43)
[2025-01-10 08:36] LABS: Alanine Aminotransferase 22 U/L (0-33); Albumin Level 3.9 g/dL (3.5-5.2); Alkaline Phosphatase 79 U/L (35-105); Anion Gap 15.9 (5-19); Aspartate Amino Transferase 19 U/L (0-32); Blood Urea Nitrogen 7 mg/dL (6-20); Calcium 8.8 mg/dL (8.5-10.5); Carbon Dioxide 19 mmol/L (22-29); Chloride 102 mmol/L (98-107); Creatinine Clr Calc Pharmacy 174.4076; Globulin 3.3 g/dL (1.3-4.6); Glucose 84 mg/dL (65-115); Osmolality Calculated 273 mOsm/kg (285-295); Potassium 3.9 mmol/L (3.5-5.1); Sodium 133 mmol/L (136-145); Total Protein 7.2 g/dL (6.6-8.7)
== END 2025-01-10 10:05 | disposition home or self-care (01) ==
PROVIDERS: Emergency Provider Emergency Medicine; PCP Family Medicine
DX: O03.4 Incomplete spontaneous abortion without complication (principal)
CPT/HCPCS: 76801; 80053; 84702; 85025; 86900; 99284

== ENCOUNTER 2025-01-21 11:29 | Outpatient (CLI) | payer OTHER, MEDICAID, SELFPAY ==
[2025-01-21 12:09] LABS: Hematocrit 34.7 % (36-47); Hemoglobin 11.60 g/dL (11.27-16.99); Mean Corpuscular HGB Conc 33.4 g/dL (30-55); Mean Corpuscular Hemoglobin 29.4 pg (27-33); Mean Corpuscular Volume 87.8 fl (85-98); Nucleated Red Blood Cells % 0 %; Platelet Count 257 10^3/cmm (157-399); Red Blood Count 3.95 10^6/uL (3.85-5.65); White Blood Count 6.77 10^3/uL (3.29-11.43)
[2025-01-21 12:42] LABS: Alanine Aminotransferase 20 U/L (0-33); Albumin Level 4.1 g/dL (3.5-5.2); Alkaline Phosphatase 85 U/L (35-105); Anion Gap 14.0 (5-19); Aspartate Amino Transferase 20 U/L (0-32); Blood Urea Nitrogen 9 mg/dL (6-20); Calcium 8.8 mg/dL (8.5-10.5); Carbon Dioxide 24 mmol/L (22-29); Chloride 106 mmol/L (98-107); Globulin 3.0 g/dL (1.3-4.6); Glucose 107 mg/dL (65-115); Osmolality Calculated 289 mOsm/kg (285-295); Potassium 4.0 mmol/L (3.5-5.1); Sodium 140 mmol/L (136-145); Thyroid Stimulating Hormone 2.04 uIU/mL (0.27-4.20); Total Protein 7.1 g/dL (6.6-8.7); Uric Acid 4.8 mg/dL (2.4-5.7)
[2025-01-21 12:44] LABS: Calcium 8.7 mg/dL (8.5-10.5)
[2025-01-21 20:22] LABS: Free T4 Free Thyroxine 1.24 ng/dL (0.82-1.77)
[2025-01-22 14:00] LABS: COMPLEMENT COMPONENT C3C 173 mg/dL (83-193); COMPLEMENT COMPONENT C4C 23 mg/dL (15-57)
[2025-01-22 14:56] LABS: COMPLEMENT, TOTAL (CH50) 57 U/mL (31-60)
[2025-01-22 15:34] LABS: CENTROMERE B ANTIBODY <1.0 NEG AI (<1.0 NEG); JO-1 ANTIBODY <1.0 NEG AI (<1.0 NEG); RNP ANTIBODY <1.0 NEG AI (<1.0 NEG); SCL-70 ANTIBODY <1.0 NEG AI (<1.0 NEG); SS-B <1.0 NEG AI (<1.0 NEG)
[2025-01-23 06:11] LABS: HLA-B27 NEGATIVE (NEGATIVE)
[2025-01-23 11:39] LABS: THYROID PEROXIDASE ANTIBODIES 1 IU/mL (<9)
== END 2025-01-21 11:30 | disposition home or self-care (01) ==
LOC: LAB 11:31
PROVIDERS: PCP Family Medicine; Visit Provider Internal Medicine
DX: R63.5 Abnormal weight gain (principal); Z83.49 Family history of other endocrine, nutritional and metabolic diseases; F41.9 Anxiety disorder, unspecified; O24.93 Unspecified diabetes mellitus in the puerperium
CPT/HCPCS: 36415; 80053; 82310; 83970; 84439; 84443; 84550; 85025; 85651; 86140; 86160; 86162; 86200; 86235; 86255; 86376; 86431; 86812

== ENCOUNTER 2025-02-11 11:39 | Outpatient (CLI) | payer OTHER, MEDICAID, SELFPAY | END 2025-02-11 11:40 | disposition home or self-care (01) | LOC: LAB 11:41 | PROVIDERS: PCP Family Medicine; Visit Provider Nurse Practitioner Women's Health | DX: O03.4 Incomplete spontaneous abortion without complication (principal) | CPT/HCPCS: 36415; 84702 ==